=== PATIENT | female | born 1965 | race Two or more races ===

== ENCOUNTER 2021-08-26 23:18 | Emergency (ER) | payer MEDICAID, OTHER ==
[~2021-08-26] VITALS: Ht 162.6 cm; Wt 81.6 kg
[2021-08-27] VITALS: BP 141/87
--- NOTE | 2021-08-27 00:39 | NUR ---
HEAVY LINE TECHNICIAN AT PT'S BEDSIDE
== END 2021-08-27 02:40 | disposition home or self-care (01) ==
LOC: EDBD 23:22 → ER 23:22
DX: F41.9 Anxiety disorder, unspecified (principal); I10 Essential (primary) hypertension
CPT/HCPCS: 71045-TC

== ENCOUNTER 2022-04-09 09:38 | Emergency (ER) | payer MEDICAID, OTHER ==
[~2022-04-09] VITALS: Ht 162.6 cm; Wt 81.6 kg
--- NOTE | 2022-04-09 09:47 | NUR ---
TO ER BED 10 FOR MD SCHMIDT,NAD
--- NOTE | 2022-04-09 09:54 | NUR ---
IV ESTABLISHED L AC 20. LABS DRAWN AND SENT
--- NOTE | 2022-04-09 09:56 | NUR ---
DR ENCINAS AT BEDSIDE FOR EVAL
[2022-04-09] MEDS ORDERED: ACETAMINOPHEN ES 500 MG TABLET ONE (10:11)
[2022-04-09] MEDS ORDERED: ONDANSETRON HCL/PF 4 MG/2 ML VIAL ONE (10:11)
--- NOTE | 2022-04-09 10:16 | NUR ---
TECH AT BEDSIDE FOR EKG
[2022-04-09 10:22] LABS: EOSINOPHILS % (AUTO) 4.5 % (0.0-6.0); HEMATOCRIT 41 % (33-45); HEMOGLOBIN 13.7 g/dL (11.5-14.8); LYMPHOCYTES # (AUTO) 1.8 K/uL (0.8-4.8); LYMPHOCYTES % (AUTO) 39.2 % (20.0-44.0); MEAN CORPUSCULAR HGB CONC 34 g/dl (31.0-36.0); MEAN CORPUSCULAR VOLUME 84 fL (82-100); MONOCYTES # (AUTO) 0.2 K/uL (0.1-1.30); MONOCYTES % (AUTO) 4.5 % (2.0-12.0); NEUTROPHILS # (AUTO) 2.3 K/uL (1.8-8.9); NEUTROPHILS % (AUTO) 50.8 % (43.0-81.0); PLATELET COUNT (AUTO) 273 K/uL (150-450); RED BLOOD CELL COUNT(AUTO) 4.86 MIL/uL (4.0-5.2); WHITE BLOOD COUNT (AUTO) 4.6 K/uL (4.3-11.0)
[2022-04-09 10:28] LABS: CALCIUM, SERUM 8.9 mg/dL (8.5-10.1); CARBON DIOXIDE 27 mmol/L (21-32); CHLORIDE 106 mmol/L (98-107); CREATININE 0.8 mg/dL (0.6-1.3); GLUCOSE 117 mg/dL (74-106); POTASSIUM 4.1 mmol/L (3.5-5.1); SODIUM SERUM 142 mmol/L (136-145); UREA NITROGEN, BLOOD 8 mg/dL (7-18)
--- NOTE | 2022-04-09 10:28 | NUR ---
URINE COLLECTED AND SENT
[2022-04-09] MEDS ORDERED: ACETAMINOPHEN ES 500 MG TABLET PO ONE (10:30)
[2022-04-09] MEDS ORDERED: ONDANSETRON HCL/PF 4 MG/2 ML VIAL IV ONE (10:30)
--- NOTE | 2022-04-09 10:54 | NUR ---
PT RETURNED FROM CT VIA WHEELCHAIR
[2022-04-09 11:33] LABS: BILIRUBIN,URINE NEGATIVE (NEGATIVE); COLOR,URINE YELLOW (YELLOW); LEUKOCYTE ESTERASE ,URINE NEGATIVE (NEGATIVE); NITRITE, URINE NEGATIVE (NEGATIVE); PH,URINE 6.5 (5.0-8.0); PROTEIN,URINE NEGATIVE (NEGATIVE); UGLUCOSE NEGATIVE (NEGATIVE); UROBILINOGEN,URINE 0.2 EU/dL (0.2)
[2022-04-09] MEDS ORDERED: NAPR-1164 PO (12:32)
[2022-04-09 12:45] VITALS: BP 128/75
--- NOTE | 2022-04-09 12:45 | NUR ---
IV removed. Catheter intact and site benign. Pressure and 4x4 applied to site. No bleeding noted.Patient discharged to home in stable condition. Written and verbal after care instructions given. Patient verbalizes understanding of instruction.
== END 2022-04-09 12:46 | disposition home or self-care (01) ==
LOC: ER 09:47
DX: I10 Essential (primary) hypertension (principal); R51.9 Headache, unspecified
CPT/HCPCS: 99285; 96374; 70450; 71045; 93005; 85025; 80048; 81003; 36415; 84484 ×2; 83880; J2405

== ENCOUNTER 2022-04-22 22:51 | Emergency (ER) | payer MEDICAID, OTHER ==
[~2022-04-22] VITALS: Ht 162.6 cm; Wt 81.6 kg
[~2022-04-22 22:51] MED LIST: NAPR-1164 PO
--- NOTE | 2022-04-22 23:10 | NUR ---
BIBSELF C/O LYDIA EAR PAIN X 5 DAYS. PATIENT IS AAOX4. [place] SPEAKING. SEEN BY DR RAYA AT BEDSIDE. VITALS CHECKED.
[2022-04-22] MEDS ORDERED: CIPROFLOXACIN IV RTU 200 ML IV ONE (23:36)
--- NOTE | 2022-04-22 23:50 | NUR ---
IV CANNULA G18 INSERTED ON RIGHT AC. BLOOD DRAWN AND SENT TO LAB
[2022-04-23] MEDS ORDERED: OFLOXACIN OTIC SOLN 5 ML BOTTLE EACH EAR SCH
[2022-04-23] MEDS ORDERED: CIPROFLOXACIN IV RTU 400 MG in PREMIX 1 EA IV SCH ×2
--- NOTE | 2022-04-23 00:03 | NUR ---
NO OTIC SOLUTION. DR RAYA MADE AWARE
[2022-04-23] MEDS ORDERED: ONDANSETRON HCL/PF 4 MG/2 ML VIAL ONE (00:14)
[2022-04-23] MEDS ORDERED: IV NS 0.9% 250 ML IV ONE (00:21)
[2022-04-23] MEDS ORDERED: IOHEXOL-300 100 ML VIAL IV ONE (00:21)
[2022-04-23 00:24] LABS: BASOPHILS # (AUTO) 0.1 K/uL (0.0-0.2); BASOPHILS % (AUTO) 0.5 % (0.0-2.0); EOSINOPHILS % (AUTO) 1.7 % (0.0-6.0); HEMATOCRIT 39 % (33-45); HEMOGLOBIN 13.1 g/dL (11.5-14.8); LYMPHOCYTES # (AUTO) 1.7 K/uL (0.8-4.8); LYMPHOCYTES % (AUTO) 16.9 % (20.0-44.0); MEAN CORPUSCULAR HGB CONC 33 g/dl (31.0-36.0); MEAN CORPUSCULAR VOLUME 84 fL (82-100); MONOCYTES # (AUTO) 0.6 K/uL (0.1-1.30); MONOCYTES % (AUTO) 5.8 % (2.0-12.0); NEUTROPHILS # (AUTO) 7.6 K/uL (1.8-8.9); NEUTROPHILS % (AUTO) 75.1 % (43.0-81.0); PLATELET COUNT (AUTO) 250 K/uL (150-450); RED BLOOD CELL COUNT(AUTO) 4.67 MIL/uL (4.0-5.2); WHITE BLOOD COUNT (AUTO) 10.1 K/uL (4.3-11.0)
[2022-04-23] MEDS ORDERED: ONDANSETRON HCL/PF 4 MG/2 ML VIAL IV ONE (00:30)
[2022-04-23 00:38] LABS: ALBUMIN 3.7 g/dL (3.4-5.0); BILIRUBIN,DIRECT 0.2 mg/dL (0.0-0.2); BILIRUBIN,TOTAL 0.7 mg/dL (0.2-1.0); CREATININE 0.8 mg/dL (0.6-1.3); POTASSIUM 3.7 mmol/L (3.5-5.1); TOTAL PROTEIN, SERUM 7.8 g/dL (6.4-8.2)
--- NOTE | 2022-04-23 00:46 | NUR ---
PT IS BEING WHEELED TO CT DEPT
--- NOTE | 2022-04-23 01:00 | NUR ---
PT CAME BACK FROM CT.
[2022-04-23] MEDS ORDERED: OFLO5DRO5 EACH EAR (01:39)
[2022-04-23] MEDS ORDERED: AMOX-430 PO (01:40)
--- NOTE | 2022-04-23 02:27 | NUR ---
IV CANNULA REMOVED
[2022-04-23 02:28] VITALS: BP 131/87
--- NOTE | 2022-04-23 02:28 | NUR ---
Patient discharged to home in stable condition. Written and verbal after care instructions given. Patient verbalizes understanding of instruction.
== END 2022-04-23 02:29 | disposition home or self-care (01) ==
LOC: ER 23:50
DX: H60.93 Unspecified otitis externa, bilateral (principal); H66.92 Otitis media, unspecified, left ear; I10 Essential (primary) hypertension; E78.00 Pure hypercholesterolemia, unspecified; Z79.899 Other long term (current) drug therapy
CPT/HCPCS: 99285; 96365; 70460; 85025; 80048; 87040 ×2; 80076; 85652; 36415; 86140; 96375; J0744; J2405; J7050; A4216; Q9967

== ENCOUNTER 2022-05-28 18:26 | Emergency (ER) | payer OTHER ==
[~2022-05-28] VITALS: Ht 162.6 cm; Wt 83.9 kg
[~2022-05-28 18:26] MED LIST changes: +AMOX-430 PO; +OFLO5DRO5 EACH EAR
[2022-05-28 18:44] VITALS: BP 130/105
--- NOTE | 2022-05-28 18:55 | NUR ---
s no draing pt on medition antbotic Received pt 57yrs femal came from home c/o pain on RT EAR AND MICHEL[facility] AND [facility]
[2022-05-28] MEDS ORDERED: NEOM10DR11 EACH EAR (18:58)
[2022-05-28] MEDS ORDERED: AMOX-430 PO (18:58)
--- NOTE | 2022-05-28 19:29 | NUR ---
HAND OFF DANI MIGUEL
--- NOTE | 2022-05-28 19:56 | NUR ---
Patient discharged to home in stable condition. Written and verbal after care instructions given. Patient verbalizes understanding of instruction.
== END 2022-05-28 19:57 | disposition home or self-care (01) ==
LOC: ER 18:29
DX: H60.91 Unspecified otitis externa, right ear (principal); I10 Essential (primary) hypertension; Z79.899 Other long term (current) drug therapy

== ENCOUNTER 2022-09-27 10:28 | Emergency (ER) | payer OTHER ==
[~2022-09-27] VITALS: Ht 162.6 cm; Wt 81.6 kg
[~2022-09-27 10:28] MED LIST changes: +NEOM10DR11 EACH EAR
--- NOTE | 2022-09-27 11:40 | NUR ---
Patient AOx4, no signs of distres, reports rigth ankle pain after getting off from a car, states she did not fall. Daughter at bedside, per pts request
[2022-09-27] MEDS ORDERED: IBUP-1955 PO (13:20)
[2022-09-27 13:32] VITALS: BP 128/77
--- NOTE | 2022-09-27 13:32 | NUR ---
Patient discharged to home in stable condition. Written and verbal after care instructions given. Patient verbalizes understanding of instruction.
== END 2022-09-27 13:32 | disposition home or self-care (01) ==
LOC: ER 10:35
DX: M77.31 Calcaneal spur, right foot (principal); M79.671 Pain in right foot; I10 Essential (primary) hypertension; Z79.899 Other long term (current) drug therapy
CPT/HCPCS: 73610-TC; 73630-TC